=== PATIENT | female | born 1960 | race African-American/Black ===

== ENCOUNTER 2016-05-06 21:32 | Emergency (ER) | payer OTHER ==
[~2016-05-06] VITALS: Ht 165.1 cm; Wt 79.4 kg
[~2016-05-06 21:32] MED LIST: AMOX1TAB61 PO; AZIT250T6 PO; BENZ100C PO; CLIN-44 PO; CLON1PAT9 TD; CYCL10TA2 PO; FURO-69 PO; HYDR-79 PO; HYDR-971 PO; NAPR375T3 PO; NIFE10CA PO; OXYC5TAB PO; PRED20TA PO; PRED50TA PO; PROAIR HFA8.5 GM INH
[2016-05-06 22:02] VITALS: BP 144/84
[2016-05-06] MEDS ORDERED: OXYC5TAB PO (22:28)
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
[2016-05-06] MEDS ORDERED: OXYCODONE/APAP 5/325 TABLET. PO ONE (23:00)
== END 2016-05-06 22:35 | disposition home or self-care (01) ==
LOC: ER 21:32
DX: G89.18 Other acute postprocedural pain (principal); M54.2 Cervicalgia; G89.29 Other chronic pain; I10 Essential (primary) hypertension; F12.10 Cannabis abuse, uncomplicated; Z88.2 Allergy status to sulfonamides; Z88.8 Allergy status to other drugs, medicaments and biological substances
CPT/HCPCS: 99283

== ENCOUNTER 2017-02-26 16:54 | Emergency (ER) | payer OTHER ==
[2017-02-26 17:20] LABS: POC GLUCOSE 447 mg/dL (70-99)
[2017-02-26] MEDS: INSULIN REGULAR 100 UNIT/ML 10ML VIAL. IM (17:45)
[2017-02-26] MEDS: IV NORMAL SALINE 1000ML BAG 1,000 ML IV ×2 (18:02)
[2017-02-26 18:03] LABS: ADD MAN DIFF? NO
[2017-02-26 18:05] LABS: BASO % 1 % (0-3); EOS % 1 % (0-3); HEMATOCRIT 41.5 % (36.0-47.0); HEMOGLOBIN 13.7 g/dL (12.0-15.5); LYMPH % 35 % (24-48); MEAN CORPUSCULAR HEMOGLOBIN 31 pg (25-35); MEAN CORPUSCULAR HGB CONC 33 g/dL (31-37); MEAN CORPUSCULAR VOLUME 96 fL (79-100); MONO % 6 % (0-9); NEUT % 58 % (31-73); PLATELET COUNT 355 x10^3/uL (140-400); RED BLOOD COUNT 4.34 x10^6/uL (3.50-5.40); RED CELL DISTRIBUTION WIDTH 13.1 % (11.5-14.5); WHITE BLOOD COUNT 8.4 x10^3/uL (4.0-11.0)
[2017-02-26 18:16] LABS: ANION GAP 12 (6-14); BLOOD UREA NITROGEN 16 mg/dL (7-20); BUN/CREATININE RATIO 16 (6-20); CALCIUM 8.9 mg/dL (8.5-10.1); CARBON DIOXIDE 26 mmol/L (21-32); CHLORIDE 103 mmol/L (98-107); GFR 69.7; GLUCOSE 418 mg/dL (70-99); POTASSIUM 3.9 mmol/L (3.5-5.1); SODIUM 141 mmol/L (136-145)
[2017-02-26 18:22] LABS: TROPONINI < 0.017 ng/mL (0.000-0.055)
[2017-02-26 18:23] LABS: ALBUMIN 3.5 g/dL (3.4-5.0); ALBUMIN/GLOBULIN RATIO 0.9 (1.0-1.7); ALK PHOS 109 U/L (46-116); ALT (SGPT) 35 U/L (14-59); AST (SGOT) 25 U/L (15-37); TOTAL BILIRUBIN 0.2 mg/dL (0.2-1.0); TOTAL PROTEIN 7.6 g/dL (6.4-8.2)
[2017-02-26 18:50] LABS: POC GLUCOSE 338 mg/dL (70-99)
[2017-02-26 19:15] LABS: OBC FLU VALID
[2017-02-26 19:45] LABS: POC GLUCOSE 263 mg/dL (70-99)
== END 2017-02-26 20:42 | disposition home or self-care (01) ==
LOC: ER 16:54
DX: E11.65 Type 2 diabetes mellitus with hyperglycemia (principal); R53.81 Other malaise; Z91.14 Patient's other noncompliance with medication regimen; B34.9 Viral infection, unspecified; Z88.2 Allergy status to sulfonamides; Z88.6 Allergy status to analgesic agent
CPT/HCPCS: 36415; 71020; 80053; 82962; 84484; 85025; 87804; 87804-59; 93005; 96360; 96361; 96372; 99285-25; J1815; J7030

== ENCOUNTER → 2017-10-30 | Outpatient (CLI) | payer OTHER ==
[2017-02-26 20:05] VITALS: BP 158/86
[~2017-10-30] MED LIST changes: -CLIN-44 PO; +CLIN150C14 PO; +NAPR-695 PO; -NAPR375T3 PO; -OXYC5TAB PO; +OXYC5TAB95 PO
--- NOTE | 2017-10-30 12:49 | RAD ---
Three-view right foot dated 10/30/2017. No comparison available. Clinical data indication: Pain. History of ingrown toenails. FINDINGS: 3 views right foot show normal bony alignment. Moderate hallux valgus deformity. No destructive changes or periostitis. No evidence of fracture. IMPRESSION: No acute findings. Electronically signed by: Janes Brennan MD (10/30/2017 12:45 PM) [facility]
== END | disposition home or self-care (01) ==
LOC: RAD 08:49
PROVIDERS: ATTEND Surgery
DX: M20.11 Hallux valgus (acquired), right foot (principal); I10 Essential (primary) hypertension; E11.9 Type 2 diabetes mellitus without complications; J45.909 Unspecified asthma, uncomplicated; Z87.891 Personal history of nicotine dependence; Z88.2 Allergy status to sulfonamides; Z88.6 Allergy status to analgesic agent; Z88.8 Allergy status to other drugs, medicaments and biological substances
CPT/HCPCS: 73630

== ENCOUNTER 2019-08-31 19:09 | Emergency (ER) | payer OTHER ==
[~2019-08-31] VITALS: Ht 165.1 cm; Wt 70.0 kg
[~2019-08-31 19:09] MED LIST changes: +ALBU2.5V8 INH; +HYDR-3164 PO; -HYDR-79 PO; -HYDR-971 PO; +HYDROCODONE-IB1 EAC3 PO; +OXYC5TAB4 PO; -OXYC5TAB95 PO; -PROAIR HFA8.5 GM INH
[2019-08-31] MEDS ORDERED: ONDANSETRON PF 4 MG/2 ML VIAL. IVP ONE (19:45)
[2019-08-31] MEDS ORDERED: fentaNYL PF VIAL 100 MCG/2 ML VIAL IVP ONE ×2 (19:45→22:30)
[2019-08-31] MEDS ORDERED: IV NORMAL SALINE 1000ML BAG 1,000 ML IV ONE (19:45)
[2019-08-31 20:07] LABS: BASO # 0.1 x10^3/uL (0.0-0.2); BASO % 1 % (0-3); EOS # 0.1 x10^3/uL (0.0-0.7); EOS % 1 % (0-3); HEMATOCRIT 36.3 % (36.0-47.0); HEMOGLOBIN 12.5 g/dL (12.0-15.5); LYMPH # 2.6 x10^3/uL (1.0-4.8); LYMPH % 25 % (24-48); MEAN CORPUSCULAR HEMOGLOBIN 32 pg (25-35); MEAN CORPUSCULAR HGB CONC 35 g/dL (31-37); MEAN CORPUSCULAR VOLUME 92 fL (79-100); MONO # 0.7 x10^3/uL (0.0-1.1); MONO % 7 % (0-9); NEUT # 7.2 x10^3/uL (1.8-7.7); NEUT % 67 % (31-73); PLATELET COUNT 376 x10^3/uL (140-400); RED BLOOD COUNT 3.95 x10^6/uL (3.50-5.40); RED CELL DISTRIBUTION WIDTH 13.5 % (11.5-14.5); WHITE BLOOD COUNT 10.8 x10^3/uL (4.0-11.0)
[2019-08-31 20:15] LABS: CALCIUM 9.3 mg/dL (8.5-10.1); CREATININE 1.9 mg/dL (0.6-1.0); POTASSIUM 3.5 mmol/L (3.5-5.1)
[2019-08-31 20:16] LABS: PROTHROMBIN TIME PATIENT 12.6 SEC (11.7-14.0)
[2019-08-31 20:20] LABS: ALBUMIN 3.6 g/dL (3.4-5.0); ALBUMIN/GLOBULIN RATIO 0.8 (1.0-1.7); TOTAL BILIRUBIN 0.3 mg/dL (0.2-1.0)
[2019-08-31 21:02] LABS: BILIRUBIN,URINE SMALL (NEG); CLARITY,URINE HAZY; COLOR,URINE AMBER
[2019-08-31 21:03] LABS: NITRITE,URINE NEGATIVE (NEG); PROTEIN,URINE 100 mg/dL (NEG-TRACE)
[2019-08-31 21:05] LABS: BACTERIA,URINE MODERATE /HPF (0-FEW); GRANULAR CASTS,URINE FEW /HPF; HYALINE CASTS, URINE FEW /HPF; SQUAMOUS EPITHELIAL CELL,UR MANY /LPF
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
[2019-08-31 22:20] VITALS: BP 190/91
--- NOTE | 2019-08-31 22:31 | EKG ---
[facility] [address] [place] [address] Test Date: 2019-08-31 Test Time: 20:08:47 Pat Name: YONY SEARS Department: Room: Gender: F [employer]: : 1960 Requested By: CAMELIA KHALIL Order Number: [id number] Reading MD: Measurements Intervals [place] Rate: 72 P: 38 CO: 168 QRS: 0 QRSD: 106 T: 73 QT: 402 QTc: 442 Interpretive Statements SINUS RHYTHM LEFT ATRIAL ABNORMALITY LEFTWARD AXIS LVH WITH REPOLARIZATION ABNORMALITY QRS(T) CONTOUR ABNORMALITY CONSIDER ANTEROLATERAL MYOCARDIAL DAMAGE ABNORMAL ECG RI6.01 No previous ECG available for comparison
[2019-08-31] MEDS ORDERED: CEPH-264 PO (22:40)
[2019-08-31] MEDS ORDERED: ALBU2.5V8 INH (22:40)
[2019-08-31] MEDS ORDERED: CYCL10TA2 PO (22:40)
[2019-08-31] MEDS ORDERED: HYDR-3164 PO (22:40)
== END 2019-08-31 22:45 | disposition home or self-care (01) ==
LOC: ER 19:09
DX: S20.02XA Contusion of left breast, initial encounter (principal); N39.0 Urinary tract infection, site not specified; R05 Cough; E27.9 Disorder of adrenal gland, unspecified; I10 Essential (primary) hypertension; E11.9 Type 2 diabetes mellitus without complications; F17.200 Nicotine dependence, unspecified, uncomplicated; F12.90 Cannabis use, unspecified, uncomplicated; Z98.890 Other specified postprocedural states; Z88.2 Allergy status to sulfonamides; Z88.8 Allergy status to other drugs, medicaments and biological substances; Z79.899 Other long term (current) drug therapy; V49.9XXA Car occupant (driver) (passenger) injured in unspecified traffic accident, initial encounter; Y93.89 Activity, other specified; Y92.413 State road as the place of occurrence of the external cause; Y99.8 Other external cause status
CPT/HCPCS: 36415; 70450; 71250; 72125; 74176; 80053; 81001; 84484; 85025; 85610; 85730; 87086; 93005; 96374; 96375; 96376; 99285; J2405; J3010; J7030

== ENCOUNTER 2020-03-28 15:40 | Emergency (ER) | payer OTHER ==
[~2020-03-28] VITALS: Ht 165.1 cm; Wt 68.0 kg
[~2020-03-28 15:40] MED LIST changes: +CEPH-264 PO; -CLIN150C14 PO; +CLIN150C15 PO
[2020-03-28] MEDS ORDERED: HYDROcodone/APAP 7.5/325MG 1 TAB TABLET PO ONE (16:00)
[2020-03-28] MEDS ORDERED: traMADol 50 MG TABLET PO ONE (16:15)
[2020-03-28] MEDS ORDERED: IV NORMAL SALINE 1000ML BAG 1,000 ML IV ONE (16:45)
--- NOTE | 2020-03-28 17:25 | RAD ---
CT maxillofacial without contrast History: Right upper palate abscess Axial helical images of the face were obtained without contrast. Axial and coronal reconstruction was performed. FINDINGS: There is opacification of the left maxillary sinus which is seen in August 31, 2019 CT of the head. Mil d buckling of the floor of the left orbit seen previously is likely secondary to old trauma. The nasal septum is mildly deviated to the right. The ostiomeatal complexes are occluded. There is mo derately compressive thickening of the right maxillary sinus. The remaining visualized osseous struct ures appear intact. Multiple periapical lucencies are seen in the axilla and there is a large apical lucency around the s econd maxillary tooth on the right which extends into a fluid collection above and below the hard pal ate anteriorly on the right. Impression: 1. Opacification of the left maxillary sinus was seen previously. 2. Moderately compressive thickening of the right maxillary sinus is a new. 3. Periapical abscesses were seen previously however the large periapical abscess on the right direct ly extends into the hard palate. Bony destruction appears to be limited to the periapical space and d oes not extend into the hard palate. Consider ENT consultation. End impression PQRS Compliance Statement: One or more of the following individualized dose reduction techniques were utilized for this examinat ion: 1. Automated exposure control 2. Adjustment of the mA and/or kV according to patient size 3. Use of iterative reconstruction technique Electronically signed by: Donovan Mcclendon III, MD (03/28/2020 5:22 PM) [facility]
[2020-03-28 17:27] LABS: BASO # 0.1 x10^3/uL (0.0-0.2); BASO % 1 % (0-3); EOS # 0.1 x10^3/uL (0.0-0.7); EOS % 1 % (0-3); HEMATOCRIT 33.2 % (36.0-47.0); HEMOGLOBIN 11.2 g/dL (12.0-15.5); LYMPH # 2.5 x10^3/uL (1.0-4.8); LYMPH % 22 % (24-48); MEAN CORPUSCULAR HEMOGLOBIN 32 pg (25-35); MEAN CORPUSCULAR HGB CONC 34 g/dL (31-37); MEAN CORPUSCULAR VOLUME 93 fL (79-100); MONO # 0.8 x10^3/uL (0.0-1.1); MONO % 7 % (0-9); NEUT # 8.3 x10^3/uL (1.8-7.7); NEUT % 70 % (31-73); PLATELET COUNT 307 x10^3/uL (140-400); RED BLOOD COUNT 3.56 x10^6/uL (3.50-5.40); RED CELL DISTRIBUTION WIDTH 13.7 % (11.5-14.5); WHITE BLOOD COUNT 11.8 x10^3/uL (4.0-11.0)
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
[2020-03-28] MEDS ORDERED: CLINDAMYCIN HCL 150 MG CAPSULE. PO ONE (17:45)
[2020-03-28 17:55] LABS: CALCIUM 9.1 mg/dL (8.5-10.1); GFR 68.9; POTASSIUM 3.6 mmol/L (3.5-5.1)
[2020-03-28 18:18] VITALS: BP 205/119
[2020-03-28] MEDS ORDERED: NIFE90TA PO (18:21)
[2020-03-28] MEDS ORDERED: CLIN150C15 PO (18:21)
[2020-03-28] MEDS ORDERED: KETOROLAC 30 MG/ML VIAL. IV ONE (18:30)
== END 2020-03-28 18:48 | disposition home or self-care (01) ==
LOC: ER 15:40
DX: K04.7 Periapical abscess without sinus (principal); I10 Essential (primary) hypertension; E11.9 Type 2 diabetes mellitus without complications; F17.200 Nicotine dependence, unspecified, uncomplicated; F10.20 Alcohol dependence, uncomplicated; Y90.9 Presence of alcohol in blood, level not specified; Z88.2 Allergy status to sulfonamides; Z88.6 Allergy status to analgesic agent
CPT/HCPCS: 36415; 41800; 70486; 80048; 85025; 96361; 96374; 96375; 99284; J1885; J2060; J7030

== ENCOUNTER 2020-04-16 08:28 | Emergency (ER) | payer OTHER ==
[~2020-04-16] VITALS: Ht 167.6 cm; Wt 85.0 kg
[~2020-04-16 08:28] MED LIST changes: +NIFE90TA PO
[2020-04-16 08:40] VITALS: BP 172/100
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
[2020-04-16] MEDS ORDERED: IV NORMAL SALINE 1000ML BAG 1,000 ML IV ONE (09:30)
[2020-04-16 09:37] LABS: BASO # 0.1 x10^3/uL (0.0-0.2); BASO % 1 % (0-3); EOS # 0.1 x10^3/uL (0.0-0.7); EOS % 1 % (0-3); HEMATOCRIT 35.3 % (36.0-47.0); HEMOGLOBIN 11.9 g/dL (12.0-15.5); LYMPH # 2.6 x10^3/uL (1.0-4.8); LYMPH % 27 % (24-48); MEAN CORPUSCULAR HEMOGLOBIN 31 pg (25-35); MEAN CORPUSCULAR HGB CONC 34 g/dL (31-37); MEAN CORPUSCULAR VOLUME 92 fL (79-100); MONO # 0.6 x10^3/uL (0.0-1.1); MONO % 6 % (0-9); NEUT # 6.3 x10^3/uL (1.8-7.7); NEUT % 65 % (31-73); PLATELET COUNT 394 x10^3/uL (140-400); RED BLOOD COUNT 3.83 x10^6/uL (3.50-5.40); RED CELL DISTRIBUTION WIDTH 13.7 % (11.5-14.5); WHITE BLOOD COUNT 9.7 x10^3/uL (4.0-11.0)
[2020-04-16 09:46] LABS: CALCIUM 9.2 mg/dL (8.5-10.1); CREATININE 0.9 mg/dL (0.6-1.0); GFR 77.8; POTASSIUM 3.5 mmol/L (3.5-5.1)
[2020-04-16 09:51] LABS: ALBUMIN 3.3 g/dL (3.4-5.0); ALBUMIN/GLOBULIN RATIO 0.7 (1.0-1.7); TOTAL BILIRUBIN 0.3 mg/dL (0.2-1.0); TOTAL PROTEIN 7.9 g/dL (6.4-8.2)
[2020-04-16] MEDS ORDERED: DEXAMETHASONE SOD PHOS 4 MG/ML VIAL IVP ONE (11:00)
[2020-04-16] MEDS ORDERED: ALBUTEROL SULFATE 2.5 MG/3 ML NEBU. NEB ONE (11:00)
--- NOTE | 2020-04-16 11:19 | RAD ---
XR CHEST 1V History: Reason: SOA / Spl. Instructions: / History: Comparison: February 26, 2017 Findings: No consolidation or pleural effusion. Normal heart size. No pneumothorax. Glenohumeral DJD. Impression: 1. No acute cardiopulmonary process. Electronically signed by: Lex Delgadillo DO (04/16/2020 11:17 AM) [facility] [place]
[2020-04-16] MEDS ORDERED: ORPH100T PO (12:14)
[2020-04-16] MEDS ORDERED: ALBU2.5V8 IH (12:14)
--- NOTE | 2020-04-16 12:57 | EKG ---
[facility] [address] [place] [address] Test Date: 2020-04-16 Test Time: 08:39:45 Pat Name: YONY SEARS Department: Room: Gender: F Billing Clerk: : [id number] Requested By: KORI SALES Order Number: [id number] Reading MD: Measurements Intervals [place] Rate: 81 P: 40 OR: 156 QRS: 4 QRSD: 106 T: 91 QT: 396 QTc: 460 Interpretive Statements SINUS RHYTHM LEFT ATRIAL ABNORMALITY T ABNORMALITY IN ANTEROLATERAL LEADS ABNORMAL ECG RI6.01 No previous ECG available for comparison
== END 2020-04-16 12:42 | disposition home or self-care (01) ==
LOC: ER 08:28
DX: G89.29 Other chronic pain (principal); M25.511 Pain in right shoulder; R06.02 Shortness of breath; R05 Cough; F41.9 Anxiety disorder, unspecified; E11.9 Type 2 diabetes mellitus without complications; I10 Essential (primary) hypertension; F17.200 Nicotine dependence, unspecified, uncomplicated; F12.90 Cannabis use, unspecified, uncomplicated; Z98.890 Other specified postprocedural states; Z88.2 Allergy status to sulfonamides; Z88.8 Allergy status to other drugs, medicaments and biological substances
CPT/HCPCS: 36415; 71045; 80053; 82553; 82962; 83735; 83880; 84484; 85025; 85379; 93005; 94640; 96361; 96374; 99285; J1100; J7030; J7613

== ENCOUNTER 2021-03-23 16:43 | Emergency (ER) | payer OTHER ==
[~2021-03-23] VITALS: Ht 165.1 cm; Wt 74.0 kg
[~2021-03-23 16:43] MED LIST changes: +ALBU2.5V8 IH; -CLIN150C15 PO; +CLIN150C16 PO; +CYCL10TA19 PO; -CYCL10TA2 PO; +ORPH100T PO
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
[2021-03-23 17:50] VITALS: BP 155/77
[2021-03-23] MEDS ORDERED: CYCL10TA19 PO (17:51)
[2021-03-23] MEDS ORDERED: IBUP-1060 PO (17:51)
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
== END 2021-03-23 18:17 | disposition home or self-care (01) ==
LOC: ER 16:43
DX: S13.9XXA Sprain of joints and ligaments of unspecified parts of neck, initial encounter (principal); R51.9 Headache, unspecified; E11.9 Type 2 diabetes mellitus without complications; I10 Essential (primary) hypertension; F10.20 Alcohol dependence, uncomplicated; Y90.9 Presence of alcohol in blood, level not specified; F17.200 Nicotine dependence, unspecified, uncomplicated; F41.9 Anxiety disorder, unspecified; Z88.2 Allergy status to sulfonamides; Z88.6 Allergy status to analgesic agent; V43.62XA Car passenger injured in collision with other type car in traffic accident, initial encounter; Y92.481 Parking lot as the place of occurrence of the external cause; Y93.89 Activity, other specified; Y99.8 Other external cause status
CPT/HCPCS: 70450; 72125; 82962; 99284-25